=== PATIENT | female | born 1960 | race Caucasian/White ===

== ENCOUNTER → 2018-06-30 | Outpatient (CLI) | payer OTHER | LOC: MC.RAD 07:08 | DX: Z12.31 Encounter for screening mammogram for malignant neoplasm of breast (principal) ==

== ENCOUNTER → 2021-07-03 | Outpatient (CLI) | payer OTHER | LOC: MC.RAD 08:24 | DX: Z12.31 Encounter for screening mammogram for malignant neoplasm of breast (principal) ==

== ENCOUNTER → 2023-09-08 | Outpatient (CLI) | payer OTHER | LOC: MC.RAD 16:47 | DX: Z12.31 Encounter for screening mammogram for malignant neoplasm of breast (principal) ==